=== PATIENT | female | born 1965 | race Two or more races ===

== ENCOUNTER 2020-06-25 21:21 | Inpatient (IN) | payer SELFPAY ==
[~2020-06-25] VITALS: Ht 162.6 cm; Wt 134.0 kg
[2020-06-25] MEDS ORDERED: MORPHINE SULFATE 4 MG/ML SYR/VIAL IV ONE (22:00)
[2020-06-25] MEDS ORDERED: IOHEXOL 300 MG/ML 100ML BOTTLE IJ ONE (23:25)
[2020-06-25 23:30] LABS: Mean Corpuscular Hemoglobin 35.2 pg (28.0-32.0); Mean Corpuscular Hgb Conc. 34.5 g/dL (32.0-36.0); Mean Corpuscular Volume 101.9 fL (80.0-100.0); Platelet Count (auto) 122 10^3/uL (140-450); Red Blood Cells 1.57 10^6/uL (4.0-5.20); White Blood Cell 9.1 10^3/uL (4.4-10.8)
[2020-06-25] MEDS ORDERED: NOREPINEPHRINE 8 MG/250ML KIT 250 ML IV SCH (23:30)
[2020-06-25] MEDS ORDERED: SODIUM CHLORIDE 0.9% 1,000 ML IV ONE (23:30)
[2020-06-25] MEDS ORDERED: NOREPINEPHRINE 8 MG/250ML KIT 250 ML IV ONE (23:31)
[2020-06-25 23:37] LABS: Hemoglobin 5.5 g/dL (12.2-16.2); Red Cell Distribution Width 29.1 % (11.8-14.3)
[2020-06-25 23:38] LABS: Basophils % (manual) 0 (0.0-2.0); Blast Cells 0; Metamyelocytes % 0; Myelocytes % 0; Promyelocytes % 0; Reactive Lymphocytes 0
[2020-06-25 23:52] LABS: Albumin 1.9 g/dL (3.4-5.0); Calcium 8.8 mg/dL (8.5-10.1); INR 2.27 (0.9-1.15)
[2020-06-26] VITALS (36 sets, daily range): BP systolic 50–86; BP diastolic 23–38
[2020-06-26] LABS: BUN/Creatinine Ratio 5.6; Magnesium 2.7 mg/dL (1.6-2.6); Total Protein 4.6 g/dL (6.4-8.2)
[2020-06-26] MEDS ORDERED: LACTULOSE 20Gm/30ML SOLN PO ONE
[2020-06-26 00:01] LABS: Partial Thromboplastin Time 90.5 sec (23.0-31.2)
[2020-06-26 00:19] LABS: Band Neutrophils % (manual) 5; Eosinophils % (manual) 2 (0-7); Lymphocytes % (manual) 7 (10.0-50.0); Monocytes % (manual) 5 (0-12)
[2020-06-26] MEDS ORDERED: SUCCINYLCHOLINE CHLORIDE 20 MG/ML 10ML VIAL IV ONE ×2 (00:22→00:30)
[2020-06-26] MEDS ORDERED: ETOMIDATE (2MG/ML) 20ML VIAL IV ONE ×2 (00:22→00:30)
[2020-06-26] MEDS ORDERED: MIDAZOLAM DRIP 50 mg/50mL 50 ML IV ONE (00:22)
[2020-06-26] MEDS ORDERED: MIDAZOLAM DRIP 50 mg/50mL 50 ML IV SCH (00:30)
[2020-06-26] MEDS ORDERED: MORPHINE SULF INJ 2 MG/ML SYRINGE 1ML IV PRN ×2 (01:15→10:30)
[2020-06-26] MEDS ORDERED: NITROGLYCERIN 0.4 MG SL TAB SL PRN (01:15)
[2020-06-26] MEDS ORDERED: DEXTROSE (50%) 50ML SYRG IV PRN (01:15)
[2020-06-26] MEDS ORDERED: ONDANSETRON HCL 4 MG/2 ML VIAL IV PRN (01:15)
[2020-06-26] MEDS ORDERED: ACETAMINOPHEN 650 MG RECT SUPP PR PRN (01:15)
[2020-06-26] MEDS ORDERED: VANCOMYCIN PER PHARMACY 0 MG IV SCH (01:45)
[2020-06-26] MEDS ORDERED: ALBUMIN 25% 50 ML IV SCH (02:00)
[2020-06-26] MEDS ORDERED: metroNIDAZOLE 500MG/100ML 100 ML IV SCH (02:00)
[2020-06-26] MEDS ORDERED: VANCOMYCIN 1GM/250ML 250 ML IV ONE (02:00)
[2020-06-26] MEDS ORDERED: PHENYLEPHRINE IV 250 ML IV ONE (02:43)
[2020-06-26] MEDS ORDERED: PHENYLEPHRINE IV 250 ML IV SCH (03:00)
[2020-06-26] MEDS ORDERED: PHENYLEPHRINE HCL 10 MG/ML VL ONE (03:34)
[2020-06-26] MEDS ORDERED: NOREPINEPHRINE BITARTRATE 2 ML IV ONE (03:39)
[2020-06-26] MEDS ORDERED: VASOPRESSIN 50 UNITS in D5W 5% 247.5 ML IV SCH ×2 (03:45→08:00)
[2020-06-26] MEDS ORDERED: PHENYLEPHRINE INJ 40 MG in SODIUM CHL 0.9% 246 ML IV SCH (03:45)
[2020-06-26] MEDS ORDERED: NOREPINEPHRINE BITARTRATE 16 MG in SODIUM CHL 0.9% 234 ML IV SCH (03:45)
[2020-06-26 04:43] LABS: Hematocrit 16.5 % (36.0-46.0); Mean Corpuscular Hemoglobin 30.3 pg (28.0-32.0); Mean Corpuscular Hgb Conc. 32.3 g/dL (32.0-36.0); Mean Corpuscular Volume 93.8 fL (80.0-100.0); Platelet Count (auto) 69 10^3/uL (140-450); Red Blood Cells 1.76 10^6/uL (4.0-5.20); White Blood Cell 11.7 10^3/uL (4.4-10.8)
[2020-06-26 04:44] LABS: Red Cell Distribution Width 24.8 % (11.8-14.3)
[2020-06-26 04:48] LABS: Hemoglobin 5.3 g/dL (12.2-16.2)
[2020-06-26 04:49] LABS: Basophils % (manual) 0 (0.0-2.0); Blast Cells 0; Eosinophils % (manual) 0 (0-7); Promyelocytes % 0; Reactive Lymphocytes 0
[2020-06-26 04:52] LABS: Albumin 1.7 g/dL (3.4-5.0); BUN/Creatinine Ratio 5.4; Bilirubin, Total 6.2 mg/dL (0.2-1.0); Calcium 8.4 mg/dL (8.5-10.1); Total Protein 3.8 g/dL (6.4-8.2)
[2020-06-26 05:38] LABS: Band Neutrophils % (manual) 12; Lymphocytes % (manual) 2 (10.0-50.0); Metamyelocytes % 3; Monocytes % (manual) 4 (0-12); Myelocytes % 7
[2020-06-26] MEDS ORDERED: EPINEPHrine HCL INJECTION 8 MG in D5W 5% 242 ML IV SCH (05:45)
[2020-06-26] MEDS ORDERED: EPINEPHrine HCL 250 ML IV ONE (05:54)
[2020-06-26 05:58] LABS: INR 2.41 (0.9-1.15)
[2020-06-26 06:00] LABS: Partial Thromboplastin Time > 139.0 sec (23.0-31.2)
[2020-06-26] MEDS ORDERED: ACCU-CHEK COMFORT CURVE STRIP VI SCH (06:00)
[2020-06-26] MEDS ORDERED: InsuLIN REG 1unit/0.01ml Soln (100units/ml) SC SCH (06:00)
[2020-06-26] MEDS ORDERED: DOPamine 1600MCG/ML D5W 0 ML IV ONE (07:44)
[2020-06-26] MEDS ORDERED: DOPamine 3200MCG/ML 250 ML IV SCH (09:00)
[2020-06-26] MEDS ORDERED: FAMOTIDINE (10MG/ML) 2ML VL IV SCH (10:00)
[2020-06-26] MEDS ORDERED: LORazepam 2MG/ML-1ML VIAL ONE (10:07)
[2020-06-26] MEDS ORDERED: MORPHINE SULF INJ 2 MG/ML SYRINGE 1ML ONE (10:08)
[2020-06-26] MEDS ORDERED: LORazepam 2MG/ML-1ML VIAL IV PRN (10:30)
[2020-06-26 10:59] LABS: Magnesium 2.9 mg/dL (1.6-2.6)
== END 2020-06-26 16:15 | DRG 871 ==
LOC: ER 21:21 → EDBD 21:21 → ICU WEST 06-26 01:24
PROVIDERS: ADMIT Nurse Practitioner Family; ATTEND Nurse Practitioner Family
PROC: 0BH17EZ Insertion of Endotracheal Airway into Trachea, Via Natural or Artificial Opening (ICD-10-PCS; principal; 2020-06-26)
PROC: 5A1935Z Respiratory Ventilation, Less than 24 Consecutive Hours (ICD-10-PCS; 2020-06-26)
PROC: 30233K1 Transfusion of Nonautologous Frozen Plasma into Peripheral Vein, Percutaneous Approach (ICD-10-PCS; 2020-06-26)
PROC: 30233N1 Transfusion of Nonautologous Red Blood Cells into Peripheral Vein, Percutaneous Approach (ICD-10-PCS; 2020-06-26)
DX: A41.9 Sepsis, unspecified organism (principal); D65 Disseminated intravascular coagulation [defibrination syndrome]; E43 Unspecified severe protein-calorie malnutrition; G93.41 Metabolic encephalopathy; J96.01 Acute respiratory failure with hypoxia; R65.21 Severe sepsis with septic shock; N18.6 End stage renal disease; D62 Acute posthemorrhagic anemia; K92.0 Hematemesis; Z51.5 Encounter for palliative care; E11.22 Type 2 diabetes mellitus with diabetic chronic kidney disease; E86.1 Hypovolemia; K70.31 Alcoholic cirrhosis of liver with ascites; Z85.43 Personal history of malignant neoplasm of ovary; Z93.3 Colostomy status; Z99.2 Dependence on renal dialysis; Z20.822 Contact with and (suspected) exposure to COVID-19
CPT/HCPCS: 31500; 36415; 36600; 80053; 82140; 82150; 82805; 82962; 83605; 83690; 83735; 84484; 85007; 85027; 85610; 85730; 86850; 86900; 86901; 86920; 87040; 87070; 87081; 87205; 94002; 94003; 96361; 96365; 99291; G0378; J0171; J0330; J1265; J2250; J3490; J7060